=== PATIENT | male | born 1950 | race Caucasian/White ===

== ENCOUNTER 2016-12-08 02:14 | Observation (INO) | payer MEDICARE, OTHER ==
[~2016-12-08] VITALS: Ht 177.8 cm; Wt 119.8 kg
--- NOTE | 2016-12-08 02:21 | PHYS DOC ---
Past Medical History Past Medical History: High Cholesterol, Hypertension Past Surgical History: Tonsillectomy Additional Past Surgical Histo: Hernia Additional Information: non smoker Adult General Chief Complaint Chief Complaint: MULTIPLE COMPLAINTS HPI HPI Patient is a 66 year old male who presents with burning in his chest. He states last 3 days he's had a lot of throat burning. His chest and reflux symptoms. Tonight he was awakened at 1:30 AM with a bloody nose, left side that resolved then he "just didn't feel right". He was having the burning pain and felt lightheaded at that time. Has some nausea but no vomiting. No shortness of air. No recent travel. No radiation of this discomfort in his chest. No abdominal pain. No stool changes. He is followed by Dr. Luiz Umaña. Review of Systems Review of Systems Constitutional: Denies fever or chills Eyes: Denies change in visual acuity, redness, or eye pain HENT: Denies nasal congestion or sore throat; left sided nose bleed. No gum bleeding Respiratory: Denies cough or shortness of breath Cardiovascular: Burning pain GI: Denies abdominal pain, nausea, vomiting, bloody stools or diarrhea : Denies dysuria or hematuria Musculoskeletal: Denies back pain or joint pain Integument: Denies rash or skin lesions; no petechiae or easy bruising Neurologic: Denies headache, focal weakness or sensory changes Allergies Allergies Allergies Coded Allergies Type Severity Reaction Last Updated Verified No Known Drug Allergies 12/08/16 No Physical Exam Physical Exam Constitutional: Well developed, well nourished, no acute distress, non-toxic appearance. HENT: Normocephalic, atraumatic, bilateral external ears normal, oropharynx moist, no oral exudates, nose with dried blood in left anterior nares; no active bleeding. Eyes: PERRLA, EOMI, conjunctiva normal, no discharge. Neck: Normal range of motion, no tenderness, supple, no stridor. Cardiovascular:Heart rate regular rhythm, no murmur Lungs & Thorax: Bilateral breath sounds clear to auscultation Abdomen: Bowel sounds normal, soft, no tenderness, no masses, no pulsatile masses. Skin: Warm, dry, no erythema, no rash. Back: No tenderness, no CVA tenderness. Extremities: No tenderness, no cyanosis, no clubbing, ROM intact, no edema. Neurologic: Alert and oriented X 3, normal motor function, normal sensory function, no focal deficits noted. [] Psychologic: Affect normal, judgement normal, mood normal. Current Patient Data Vital Signs Vital Signs Date Time Temp Pulse Resp B/P (MAP) Pulse Ox O2 Delivery O2 Flow Rate FiO2 12/08/16 02:14 97.8 84 12 124/73 (90) 92 Room Air 97.8 Lab Values Laboratory Tests Test 12/08/16 02:30 White Blood Count 6.4 x10^3/uL (4.0-11.0) Red Blood Count 4.84 x10^6/uL (4.30-5.70) Hemoglobin 14.3 g/dL (13.0-17.5) Hematocrit 42.0 % (39.0-53.0) Mean Corpuscular Volume 87 fL (79-100) Mean Corpuscular Hemoglobin 30 pg (25-35) Mean Corpuscular Hemoglobin Concent 34 g/dL (31-37) Red Cell Distribution Width 13.5 % (11.5-14.5) Platelet Count 193 x10^3/uL (140-400) Neutrophils (%) (Auto) 54 % (31-73) Lymphocytes (%) (Auto) 31 % (24-48) Monocytes (%) (Auto) 12 % (0-9) H Eosinophils (%) (Auto) 3 % (0-3) Basophils (%) (Auto) 1 % (0-3) Neutrophils # (Auto) 3.4 x10^3uL (1.8-7.7) Lymphocytes # (Auto) 2.0 x10^3/uL (1.0-4.8) Monocytes # (Auto) 0.8 x10^3/uL (0.0-1.1) Eosinophils # (Auto) 0.2 x10^3/uL (0.0-0.7) Basophils # (Auto) 0.1 x10^3/uL (0.0-0.2) Prothrombin Time 12.9 SEC (11.7-14.0) Prothrombin Time INR 1.0 (0.8-1.1) Sodium Level 141 mmol/L (136-145) Potassium Level 3.6 mmol/L (3.5-5.1) Chloride Level 102 mmol/L (98-107) Carbon Dioxide Level 26 mmol/L (21-32) Anion Gap 13 (6-14) Blood Urea Nitrogen 26 mg/dL (8-26) Creatinine 1.1 mg/dL (0.7-1.3) Estimated GFR (Cockcroft-Gault) 66.8 Glucose Level 131 mg/dL (70-99) H Calcium Level 8.4 mg/dL (8.5-10.1) L Creatine Kinase 168 U/L (39-308) Creatine Kinase MB (Mass) 3.1 ng/mL (0.0-3.6) Creatine Kinase MB Relative Index 1.8 % (0-4) Troponin I Quantitative < 0.017 ng/mL (0.000-0.055) TT-Skx-V-Type Natriuretic Peptide 23 pg/mL (0-124) Lipase 331 U/L (73-393) Laboratory Tests 12/08/16 02:30 Laboratory Tests 12/08/16 02:30 EKG EKG EKG interpreted by myself at 2:20 AM shows normal sinus rhythm rate of 85. PVC noted. Nonspecific ST changes. Radiology/Procedures Radiology/Procedures Chest x-ray interpreted by myself at 2:40 AM shows normal mediastinum, normal cardiac silhouette, normal lung pastrana, no pneumothorax or pleural effusions. Course & Med Decision Making Course & Med Decision Making Patient evaluated upon arrival. No ST elevation noted on EKG. Differential diagnosis for chest pain includes but is not limited to: Pericarditis, myocarditis, endocarditis, pneumothorax, pneumonia, aortic dissection, esophageal spasm, esophagitis, peptic ulcer disease, acute coronary syndrome, mediastinitis, Boerhaave syndrome, musculoskeletal chest wall pain, costochondritis, intercostal strain, rib fracture, pulmonary contusion, pneumonitis, pleural effusion, pericardial effusion, pericardial tamponode, and pleurisy. PERC Criteria Assessment: Age > 50: YES HR > 100: No 02 < 95%: No H/o DVT/PE: No Recent trauma/surgery: No Hemoptysis No Exogenous Estrogen: No Unilateral Leg swelling: No Pretest probability > 15%: Less than 2% risk of PE. No further work up is necessary MACE Scoring: History: Highly suspicious (2 points); Moderately suspicious (1 point). Slightly suspicious (0 point). EKG: ST segment depression (2 points). Nonspecific repolarization disturbance ( 1 point). normal (0 point) Age: Greater than 65 (2 points), 65-45 (1 point); less than 45 years old (0 points). Risk factors:> 3 risk factors (2 points), 1-2 risk factors (one point), no risk factors (0 point). Troponin: > 2 times normal (2 points), 1-2 times normal (1 point) normal limits (0 point) Total score: ___5___ Score % pts MACE/n MACE Policy 0-3: 32% 1.9% 0.05% Discharge 4-6: 51% 413/3136 13% 1.3% Observation Risk management 7-10: 17% 518/1045 50% 2.8% Observation Treatment, CAGb At 0315 AM: concerned that this could be possibly cardiac. may be GI but patient with significant risk factors. IV Pepcid dosed here. P 81, sat 92%. Contacted PCP Dr Luiz Umaña for admission. I have spoken with the patient and/or caregivers. I have explained the patient' s condition, diagnosis and treatment plan based on the information available to me at this time. I have answered the patient's and/or caregiver's questions and addressed any concerns. The patient and/or caregivers have as good an understanding of the patient's diagnosis, condition and treatment plan as can be expected at this point. The patient has been stabilized within the capability of the emergency department. The patient will be transported for further care and management or will be moved to an observation or inpatient service. I have communicated with the staff or medical practitioner taking over this patient's care. Dragon Disclaimer Dragon Disclaimer This electronic medical record was generated, in whole or in part, using a voice recognition dictation system. Departure Departure Impression: Primary Impression: Chest pain Disposition: ADMITTED INPATIENT Admitting Physician: Luiz Umaña Condition: STABLE ROGER YOO MD Dec 08, 2016 02:21
[2016-12-08 02:40] LABS: BASO # 0.1 x10^3/uL (0.0-0.2); BASO % 1 % (0-3); EOS % 3 % (0-3); HEMOGLOBIN 14.3 g/dL (13.0-17.5); LYMPH % 31 % (24-48); MEAN CORPUSCULAR HEMOGLOBIN 30 pg (25-35); MEAN CORPUSCULAR HGB CONC 34 g/dL (31-37); MEAN CORPUSCULAR VOLUME 87 fL (79-100); MONO % 12 % (0-9); NEUT % 54 % (31-73); PLATELET COUNT 193 x10^3/uL (140-400); RED BLOOD COUNT 4.84 x10^6/uL (4.30-5.70); RED CELL DISTRIBUTION WIDTH 13.5 % (11.5-14.5); WHITE BLOOD COUNT 6.4 x10^3/uL (4.0-11.0)
[2016-12-08 02:50] LABS: PROTHROMBIN TIME PATIENT 12.9 SEC (11.7-14.0)
[2016-12-08 02:51] LABS: CALCIUM 8.4 mg/dL (8.5-10.1); CREATININE 1.1 mg/dL (0.7-1.3); GFR 66.8; POTASSIUM 3.6 mmol/L (3.5-5.1)
[2016-12-08 03:05] LABS: CKMB MASS 3.1 ng/mL (0.0-3.6)
[2016-12-08] MEDS ORDERED: MORPHINE SULFATE 4 MG/ML DISP.SYRIN. IV ONE (03:30)
[2016-12-08] MEDS ORDERED: NITROGLYCERIN SUBLINGUAL 0.4 MG BOTTLE OF 25. SL PRN (03:30)
[2016-12-08] MEDS ORDERED: MORPHINE SULFATE 4 MG/ML DISP.SYRIN. IV PRN (03:30)
[2016-12-08] MEDS ORDERED: FAMOTIDINE 20 MG/2 ML VIAL IVP ONE (03:30)
[2016-12-08] MEDS ORDERED: ONDANSETRON PF 4 MG/2 ML VIAL. IV PRN (03:30)
[2016-12-08] MEDS ORDERED: AMLO5TAB2 PO (04:44)
[2016-12-08] MEDS ORDERED: SIMV10TA3 PO (04:44)
[2016-12-08] MEDS ORDERED: LOSA1TAB17 PO (04:44)
[2016-12-08 05:03] VITALS: BP 134/75
--- NOTE | 2016-12-08 06:08 | EKG ---
[facility] [address] [place] [address] Test Date: 2016-12-08 Test Time: 02:20:36 Pat Name: EITAN BRIGGS Department: Room: 262 1 Gender: M Sand Operator: : 1950 Requested By: ROGER YOO Order Number: [id number] Reading MD: Devon Dyer Measurements Intervals [place] Rate: 85 P: 45 MI: 178 QRS: 38 QRSD: 90 T: 71 QT: 384 QTc: 463 Interpretive Statements SINUS RHYTHM PVC Electronically Signed On 12-12-2016 7:17:13 CDT by Devon Dyer
[2016-12-08 07:29] VITALS: BP 141/87
--- NOTE | 2016-12-08 07:48 | RAD ---
Chest x-ray Indication: Chest pain Technique: Portable AP upright chest plain film Comparison: None Findings: Heart is normal in size. Lungs are clear. No pneumothorax or pleural effusion. Severe bilateral acromio clavicular joint osteoarthritis. Severe right glenohumeral joint osteoarthritis. Impression: No acute cardiopulmonary process.
[2016-12-08] MEDS ORDERED: NON FORMULARY ITEM (Losartan/Hydrochlorothiazide (Losartan-Hctz 100-25 Mg Tab) 1 TAB) PO SCH (09:00)
[2016-12-08] MEDS ORDERED: PANTOPRAZOLE 40 MG TABLET.DR. PO ONE (09:00)
--- NOTE | 2016-12-08 09:05 | PDOC ---
Provider Note Provider Note dictated EFRAIN SANTILLAN MD Dec 08, 2016 09:05
--- NOTE | 2016-12-08 09:23 | HP ---
ADMIT DATE: 12/08/2016 CHIEF COMPLAINT: Chest burning. HISTORY OF PRESENT ILLNESS: A 66-year-old white male with . EFRAIN SANTILLAN MD DR: WADE/mike JOB#: [id number] / [id number]
[2016-12-08] MEDS ORDERED: amLODIPine BESYLATE 5 MG TABLET PO SCH (09:30)
[2016-12-08] MEDS ORDERED: hydroCHLOROthiazide 25 MG TABLET PO SCH (09:30)
[2016-12-08] MEDS ORDERED: LOSARTAN POTASSIUM 50 MG TABLET. PO SCH (09:30)
--- NOTE | 2016-12-08 09:36 | HP ---
ADMIT DATE: 12/08/2016 DATE OF SERVICE: 12/08/2016 CHIEF COMPLAINT: Chest burning. HISTORY OF PRESENT ILLNESS: A 66-year-old white male with no previous cardiac history, came in with 3 days of "burning sensation" in his upper mid chest. This was not associated with radiation, diaphoresis, nausea, odynophagia, or exertional exacerbation. He did not try any antacids prior to admission. He woke with more burning and nosebleed and came to the ER and EKG and lab tests are all within normal limits. He was given IV Pepcid and seems to feel better at this time. In the last 3 days, he has been able to walk and do exertion without exacerbation of pain. PAST MEDICAL HISTORY: He is on blood pressure medications. He takes ibuprofen regularly up to 4 tablets daily. HISTORY: No surgical history. SOCIAL HISTORY: He quit smoking tobacco 2 years ago after using it for 30 years. He does drink alcohol probably somewhere in the range of 2 to 8 ounces daily and takes ibuprofen as mentioned. FAMILY HISTORY: Unremarkable. REVIEW OF SYSTEMS: No melena, hematochezia, weight loss, dysphagia or other complaints. OBJECTIVE: ENT: All within normal limits. NECK: No masses, nodes or bruits. LUNGS: Clear. CARDIOVASCULAR: Regular rate. No irregular beat or murmur. Chest wall is nontender. ABDOMEN: Benign, soft and nontender. EXTREMITIES: Good pedal and radial pulses. No joint or skin lesions or nail bed findings. NEUROLOGIC: Physiologic. GENITOURINARY AND RECTAL: Deferred. LABORATORY DATA: Laboratory studies were unremarkable. ASSESSMENT: Burning chest pain, nonexertional in nature in a patient whose acid reflux risk factors include higher than normal alcohol intake and regular ibuprofen use. PLAN: We will do an exercise echo, though I believe this is more likely esophagitis and acid reflux symptoms. We will add Protonix this morning and may discharge later today if his exercise echo is normal. He will need omeprazole on a regular basis and office followup. EFRAIN SANTILLAN MD DR: WADE/mike JOB#: [id number] / [id number]
[2016-12-08 10:06] VITALS: BP 151/79
--- NOTE | 2016-12-08 14:08 | CARD ---
APPROVED REPORT INDICATION Chest Pain PROCEDURE The patient underwent an Exercise Stress Test using the Jeet Protocol. Blood pressure, heart rate, a nd EKG were monitored. An Echocardiogram was performed by measurement and sensing technician in four stages in quad fashion. At peak stress four se lected images were obtained and placed side by side with resting images for comparison. STRESS ECHO FINDINGS The resting Echocardiogram showed normal left ventricular contractility with an estimated Ejection Fr action of about 60 %. Normal augmentation of myocardial wall segments using a 16 segment model. Test Type: Exercise Stress Nurse/Tech: maylin zepeda Test Indications: chest pain Cardiac History and Allergies: HTN, HIGH CHOLESTEROL, SEE EHR Medications: NONE STATED Medical History: NONE STATED Resting ECG: SR Resting Heart Rate: 80 bpm Resting Blood Pressure: 159/88mmHg Pretest Chest Pain: No chest pain Nurse/Tech Notes NO RESPIRATORY DISTRESS AND NO CHEST PAIN AT THIS TIME. Consent: The procedure was explained to the patient in lay terms. Informed consent was witnessed. Travis eout was entered into [employer]. History and Stress Test performed by MAYLIN ZEPEDA Stress Symptoms SOA. POST EXERCISE Reason for Termination: Reached target heart rate Target HR: 130 Max HR: 158 bpm 103% of Maximum Predicted HR: 153 bpm Exercise duration: 6:30 min:sec, 3 Stage Exercise capacity: 7.0METs Max Blood Pressure: 168/96mmHg Blood Pressure response to exercise: Normal blood pressure response during stress. Heart Rate response to exercise: WNL Chest Pain: No. Arrhythmia: No. ST Change: No. INTERPRETATION Stress EKG Conclusion: The resting EKG shows a sinus rhythm. The stress EKG shows no significant changes. No EKG evidence of stress induced ischemia. Preliminary Notification Critical Value: No <Conclusion> Good exercise tolerance. No EKG changes of inducible ischemia. Normal LV function at rest. Normal LV response to exertion. Low risk exercise ECHO stress test.
[2016-12-08 14:33] VITALS: BP 147/85
[2016-12-08] MEDS ORDERED: OMEP40CA5 PO (15:55)
--- NOTE | 2016-12-08 17:06 | DS ---
DATE OF DISCHARGE: 12/08/2016 HOSPITAL SUMMARY: A 66-year-old white male with history of hypertension, admitted with 3 days of burning chest discomfort that was nonexertional in nature. Increase in severity prompted him to come in to the ER where he was admitted. EKG, cardiac enzymes, chemistry profile and chest x-ray were all clear. Exercise echocardiogram was all within normal limits with a good ejection fraction and no inducible ischemic changes or EKG changes. Pantoprazole was started and he was expressing benefit from that and he will be followed as an outpatient at this point. FINAL DIAGNOSES: 1. Chest pain secondary to gastroesophageal reflux disease. 2. History of alcohol abuse. OPERATIONS, PROCEDURES, AND COMPLICATIONS: None. CONSULTATIONS: None. DISPOSITION: He will take omeprazole 40 mg daily and see him in the office in 2 weeks to assess his progress. He is to try to cut back on ibuprofen and alcohol use as discussed as esophageal irritants. Continued symptoms would warrant endoscopy. EFRAIN SANTILLAN MD DR: WADE/mike JOB#: [id number] / [id number]
[2016-12-08] MEDS ORDERED: SIMVASTATIN 10 MG TABLET PO SCH (21:00)
== END 2016-12-08 16:20 | disposition home or self-care (01) ==
LOC: ER 02:14 → 2 SOUTH 03:15
PROVIDERS: ADMIT Family Medicine; ATTEND Family Medicine
DX: R07.89 Other chest pain (principal); K21.9 Gastro-esophageal reflux disease without esophagitis; I10 Essential (primary) hypertension; E78.00 Pure hypercholesterolemia, unspecified; Z87.891 Personal history of nicotine dependence; Z79.1 Long term (current) use of non-steroidal anti-inflammatories (NSAID)
CPT/HCPCS: 36415; 71010; 80048; 82553; 83690; 83880; 84484; 85025; 85610; 93005; 93017; 93350; 96374; 96375; 99285; G0378; J2270; J2405; S0028; G0379

== ENCOUNTER → 2017-03-06 | Outpatient (CLI) | payer MEDICARE, OTHER ==
[~2017-03-06] MED LIST: AMLO5TAB2 PO; LOSA1TAB22 PO; OMEP40CA5 PO; SIMV10TA3 PO
--- NOTE | 2017-03-06 14:37 | KCIC ---
MRI Thoracic Spine without contrast History: Thoracic pain, pain on the right below scapula Technique: Multiplanar, multi sequential noncontrast MR imaging was performed of the thoracic spine. Contrast: None Comparison: None Findings: Thoracic vertebral body stature is preserved. Thoracic cord caliber is within normal limits without significant focal signal abnormality. There is no significant marrow edema. There is multilevel overall mild degenerative disc disease. There is hemangioma of the T1 vertebral body. Thoracic neural foramina are mostly adequate other than mild posterior narrowing on the right at T4-5 and T5-T6 by facets. There is no significant thoracic spinal stenosis. There is multilevel thoracic spondylosis. There is mild thoracic dextroscoliosis. Impression: 1. There is no significant thoracic spinal stenosis. There is minimal narrowing of the right T4-T5 and T5-T6 neural foramina by facets. There is multilevel mild degenerative disc disease. Electronically signed by: Hossein Diggs MD (03/06/2017 2:33 PM) [facility]
== END | disposition home or self-care (01) ==
LOC: KCIC MRI 12:49
PROVIDERS: ATTEND Family Medicine
DX: M51.34 Other intervertebral disc degeneration, thoracic region (principal)
CPT/HCPCS: 72146

== ENCOUNTER → 2017-04-03 | Outpatient (CLI) | payer MEDICARE, OTHER ==
[~2017-04-03] MED LIST changes: +BUPIVACAINE MPF 0.25% 10 ML VIAL. ONE; +IBUP-1007 PO; +NAPR220C4 PO; +methylPREDNISolone ACETATE 80 MG/ML VIAL. ONE
--- NOTE | 2017-04-03 18:46 | PAIN ---
DATE OF SERVICE: 04/03/2017 CHIEF COMPLAINT: Mid upper right-sided back pain. HISTORY OF PRESENT ILLNESS: This is a 66-year-old male who presents with history of pain, mid upper back on the right side for about 3 months after a chiropractic manipulation. He was having manipulations for his neck pain and low back pain, which had been working very well and he has been having treatments for several years without difficulty. The patient reports after the treatment about 3 months ago, he had significant pain in the mid upper part of the right side of the back near the shoulder blade on the right side. The patient reports it is a sharp, constant, stabbing, shooting, worse with moving side to side or lying flat on his back, awakens him from sleep about 3-4 times a night, does not affect his bowel or bladder control or his ability to walk, but feels better when he is up and around, change in positions and stretching and moving, worse when lying down. The patient reports no loss of motor function, no radiation of the pain, is fairly well localized in the mid upper back just to the medial aspect of the scapula on the right side. The patient reports disability rating from 0 to 10, 10 being the worst, is a 6 family home responsibilities, 7 with recreation, occupation, sexual behavior and self-care and 5 with social activity and life support activities. The patient did have an MRI scan of the thoracic spine, which shows no significant stenosis, minimal narrowing of the right T4-T5 and T5-T6 neural foramina from hypertrophied facet joints, but no significant thoracic spinal stenosis. The patient reports it is better with sitting or standing, but worse with sitting for longer than about 15-20 minutes, riding in the car is problematic and much worse with lying down and twisting, bending movements, also extension of the thoracic spine is somewhat painful. PAST MEDICAL HISTORY: Significant for hypertension, arthritis, gastroesophageal reflux. 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 CURRENT MEDICATIONS: Include omeprazole, amlodipine, simvastatin, losartan, naproxen and ibuprofen. ALLERGIES: The patient has no known drug allergies. FAMILY HISTORY: Significant for no major medical problems or conditions he is aware of. SOCIAL HISTORY: The patient does not smoke, drinks alcohol about 4 times a week on average, is and lives with his spouse and lives locally in [place], [place]. REVIEW OF SYSTEMS: Positive for those items mentioned in history of present illness. All systems reviewed and otherwise negative. It is complete, full and well documented on the patient's chart. PHYSICAL EXAMINATION: VITAL SIGNS: Today, the patient's blood pressure is 151/79, pulse 76, respirations 18, temperature 98.4 degrees Fahrenheit, is 5 feet 10 inches, weight is 273 pounds. GENERAL: The patient is awake, alert, oriented, appropriate, very pleasant demeanor. HEENT: Head shows normocephalic, atraumatic. Extraocular movements are intact, symmetrical. Oral cavity: Mucous membranes moist and pink. Dentition is intact. NECK: Shows anterior throat supple without palpable lymphadenopathy noted. Swallow reflex is symmetrical. CHEST: Shows normal on inspection. Breath sounds clear to auscultation bilaterally. HEART: Shows S1, S2 clear. No murmurs auscultated. ABDOMEN: Obese, soft, nontender, nondistended. No palpable organomegaly. No rebound or guarding demonstrated. BACK: Shows spine grossly in the midline. Normal appearing thoracic kyphosis and lumbar lordotic curvature. No previous bruises, lesions, rashes or scars are noted. The patient's skin shows normal turgor, no edema and is warm and dry to the touch. The patient's upper extremities show deep tendon reflexes 2+ in the biceps and triceps tendons are equal. 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 Peripheral pulses are 2+ radial distribution. No peripheral edema is noted. The patient's thoracic spine shows just right of midline in the mid thoracic distribution, approximately the T5, T6 to T7 level shows significant hypertrophy with palpation and very firm rope-like musculature just to the right of midline and the thoracic paraspinal muscle is very tender, very palpable and compared to the left side is quite hypertrophied and left side is much more supple and nontender. This is a fairly discrete area of about 5 cm in a superior inferior aspect lateral to the right paraspinous distribution and medial to the medial scapula with very firm rope-like musculature, which is again tender, but without radiation on palpation. The patient has good rotational motion of thoracic spine, both laterally as well as extension with some minor tenderness in the same area and forward flexion without pain in that area. IMPRESSION: 1. This is a 66-year-old male with about 3-month history of pain in the mid upper back consistent with some myofascial findings on exam with myofascial pain and trigger points palpated. 2. MRI scan thoracic spine showing some narrowing of the T4-T5 and T5-T6 neural foramina on the right from hypertrophied facet joints. 3. Hypertension. 4. Arthritis. PLAN: Options were discussed with the patient including conservative medical managements, continued physical therapies and interventional techniques. He would like to proceed with interventional techniques. We discussed a myofascial trigger point injection of the aforementioned musculature at the right midthoracic paraspinous distribution. The patient would like to proceed with this. We discussed the risks including, but not limited to bleeding, infection, possibility of intravascular injection sequelae, pneumothorax, spread of local anesthetic and numbness, side effects of steroid medication and poor results regarding pain control. The patient understands and wished to proceed. The patient will return to clinic in approximately 1 week for followup, was counseled as to return appointment, activity level and side effects to be aware of. Also discussed potential thoracic epidural steroid injection if not significantly improved. The patient was counseled as to stretching and strengthening exercises as well as heat, massage therapies for the musculature in the right thoracic paraspinous distribution as well. The patient will follow up as scheduled. DIAGNOSES: Myofascial pain, thoracic degenerative disk disease and thoracic spondylosis. PROCEDURE: Trigger point injection right thoracic paraspinous musculature using a sterile prep and drape under local anesthetic. MEDICATION INJECTED: A total of 40 mg Depo-Medrol plus total of 3 mL of 0.25% bupivacaine after negative aspiration at each level. CONDITION AT DISCHARGE: Stable. The patient tolerated procedure well, had no complications. ARPIT ZAMUDIO MD DR: MANUELA/mike JOB#: [id number] / [id number] EFRAIN Carr MD
== END ==
LOC: PNCL 10:16
PROVIDERS: ATTEND Anesthesiology
DX: M47.894 Other spondylosis, thoracic region (principal); M51.34 Other intervertebral disc degeneration, thoracic region; I10 Essential (primary) hypertension; E78.00 Pure hypercholesterolemia, unspecified; K21.9 Gastro-esophageal reflux disease without esophagitis; M17.10 Unilateral primary osteoarthritis, unspecified knee
CPT/HCPCS: 20552; J1040; J3490

== ENCOUNTER → 2017-04-17 | Outpatient (CLI) | payer MEDICARE, OTHER ==
[~2017-04-17] MED LIST changes: -AMLO5TAB2 PO; +BUPIVACAINE MPF 0.25% 10 ML VIAL.; -BUPIVACAINE MPF 0.25% 10 ML VIAL. ONE; -IBUP-1007 PO; -LOSA1TAB22 PO; -NAPR220C4 PO; -OMEP40CA5 PO; -SIMV10TA3 PO; +methylPREDNISolone ACETATE 40 MG/ML VIAL.; -methylPREDNISolone ACETATE 80 MG/ML VIAL. ONE
== END | disposition home or self-care (01) ==
LOC: PNCL 08:45
DX: M79.1 Myalgia (principal); M51.34 Other intervertebral disc degeneration, thoracic region; M47.814 Spondylosis without myelopathy or radiculopathy, thoracic region; I10 Essential (primary) hypertension; E78.00 Pure hypercholesterolemia, unspecified; K21.9 Gastro-esophageal reflux disease without esophagitis; Z87.39 Personal history of other diseases of the musculoskeletal system and connective tissue; Z98.890 Other specified postprocedural states
CPT/HCPCS: 20552; J1030; J3490

== ENCOUNTER → 2017-09-13 | Outpatient (CLI) | payer MEDICARE, OTHER | END | disposition home or self-care (01) | LOC: KCIC 12:38 | DX: R05 Cough (principal) | CPT/HCPCS: 71046 ==

== ENCOUNTER → 2018-10-09 | Outpatient (CLI) | payer MEDICARE, OTHER ==
[~2018-10-09] MED LIST changes: +AMLO5TAB10 PO; -BUPIVACAINE MPF 0.25% 10 ML VIAL.; +IBUP-1007 PO; +LOSA1TAB22 PO; +NAPR220C4 PO; +OMEP40CA5 PO; +SIMV10TA3 PO; -methylPREDNISolone ACETATE 40 MG/ML VIAL.
--- NOTE | 2018-10-10 12:03 | SLEEP ---
DATE OF STUDY: 10/10/2018 ATTENDING PHYSICIAN: Efrain Umaña MD. REFERRING PHYSICIAN: Wilman Todd MD. The patient is a 68-year-old who weighs 228 pounds. The patient's Moberly score was 11. The patient underwent a split night study performed at [facility]. During the night study, the patient spent 430 minutes in bed and slept for 278 minutes with a low sleep efficiency of 65%. Sleep latency was 21 minutes with a REM latency of 175 minutes. Overall, sleep architecture showed increased stage 1 and stage 2 sleep, absent slow wave sleep and normal REM sleep. During the initial diagnostic portion of the study, the patient slept for 83 minutes. During that time, there were 3 obstructive apneas, no mixed or central apneas and 48 hypopneas. The patient's apnea hypopnea index was 37 per hour. Supine or REM sleep was not observed during the diagnostic portion. EKG monitoring revealed normal sinus rhythm. No sustained arrhythmias observed. Nocturnal oximetry study revealed an average oxygen saturation of 94% with the lowest of 84%. 17% of time, oxygen saturation remained between 80% and 89%. PLMs were seen at index of 85 per hour and 4 per hour caused EEG arousals. The patient met the criteria for CPAP initiation. It was started at 7 cm water and titrated up to 15 cm water. At the final pressure, all the obstructive apneas and hypopneas had been eliminated; however, there was an air leak resulting in central apneas causing an AHI of 14 per hour at a CPAP pressure of 15 cm of water. At this pressure, the patient slept 402 minutes. The patient's oxygen saturation remained above 91%. The patient had supine as well as REM sleep at the final pressure. The patient used medium size nasal pillows. I would recommend that a chinstrap should be added. IMPRESSION: 1. Severe sleep apnea-hypopnea syndrome with an apnea hypopnea index of 37 per hour. 2. Nocturnal hypoxia secondary to obstructive sleep apnea, but resolved with CPAP. 3. Severe periodic limb movements. RECOMMENDATIONS: 1. CPAP at 15 cm water should be used on a nightly basis. The patient did have oral leak at the final pressure resulting in central apneas. I would recommend adding a chinstrap with the medium size nasal pillows. 2. The patient should have a followup in 4-6 weeks to assess compliance and also to review the download data to make sure the central apneas have been eliminated. 3. Weight loss is strongly advised. 4. Avoid P[employer] depressants. 5. Caution regarding driving until symptoms of sleep apnea resolve with the use of CPAP. 6. The patient should also be further evaluated for symptoms of restless legs during the day and if present, it can be treated with dopaminergic agonist agents. LEO CHO MD DR: KATRINA/mike JOB#: [id number] / [id number] EFRAIN Carr MD, SABATO MD
== END | disposition home or self-care (01) ==
LOC: SLPLAB 18:55
PROVIDERS: ATTEND Internal Medicine Pulmonary Disease
DX: G47.33 Obstructive sleep apnea (adult) (pediatric) (principal); G47.34 Idiopathic sleep related nonobstructive alveolar hypoventilation
CPT/HCPCS: 95810